=== PATIENT | female | born 1940 | race Hispanic/Latino ===

== ENCOUNTER 2019-02-18 10:37 | Day surgery (SDC) | payer MEDICARE ==
[2019-02-18] MEDS ORDERED: fentaNYL 100 MCG/2 ML INJ IV PRN (11:28)
--- NOTE | 2019-02-18 11:32 | Anesthesia Consultation ---
Anesthesia Consult and Med Hx Date of service: 02/18/19 - Airway Anesthetic Teeth Evaluation: Dentures (upper; lower implants) ROM Head & Neck: Adequate Mental/Hyoid Distance: Inadequate Mallampati Class: Class IV Intubation Access Assessment: Possibly Difficult (small mouth opening) - Pulmonary Exam CTA: Yes - Cardiac Exam Cardiac Exam: RRR - Pre-Operative Health Status ASA Pre-Surgery Classification: ASA3 Proposed Anesthetic Plan: General - Pulmonary Hx Smoking: No Hx Respiratory Symptoms: No Hx Sleep Apnea: No - Cardiovascular System Hx Hypertension: No (reports hx low BP) Hx Heart Attack/AMI: No Hx Cardia Arrhythmia: Yes (10yrs ago; resolved, no longer on antiarrythmics) Hx Pacemaker: No Hx Internal Defibrillator: No - Central Nervous System Hx Seizures: Yes (6 months ago; no AEDs) CVA: No Hx Back Pain: Yes (BACK AND NECK PAIN) Hx Psychiatric Problems: Yes (depression) - Gastrointestinal Hx Gastroesophageal Reflux Disease: No - Endocrine Hx Renal Disease: Yes (CKD; normal eGFR on outpatient labs 11/2018) Hx Liver Disease: No Hx Insulin Dependent Diabetes: No Hx Non-Insulin Dependent Diabetes: No Hx Thyroid Disease: No - Hematic Hx Anemia: Yes (normal H/H on recent outpatient labs) - Other Systems Hx Obesity: No - Additional Comments Anesthesia Medical History Comments: No hx anesthetic complications. Hx. RA and Crohn's disease s/p ileostomy. No current or recent steroid use.
--- NOTE | 2019-02-18 11:32 | Anesthesia Day of Surgery ---
Anesthesia Day of Surgery - Day of Surgery Patient Examined: Yes Patient H&P Reviewed: Yes Patient is NPO: Yes
[2019-02-18] MEDS ORDERED: LIDOCAINE MPF (2%) 20 MG/1 ML VIAL 5 ML ONE (11:44)
[2019-02-18] MEDS ORDERED: SUCCINYLCHOLINE CHLORIDE 200 MG/10 ML INJ MDV ONE (11:44)
[2019-02-18] MEDS ORDERED: fentaNYL 100 MCG/2 ML INJ ONE (11:44)
[2019-02-18] MEDS ORDERED: PROPOFOL 200 MG/20 ML VIAL IV ONE (11:44)
[2019-02-18] MEDS ORDERED: dexAMETHasone 20 MG/5 ML VIAL ONE (11:45)
[2019-02-18] MEDS ORDERED: ONDANSETRON 4 MG/2 ML INJ ONE (11:45)
[2019-02-18] MEDS ORDERED: LACTATED RINGERS 1,000 ML IV SCH (12:00)
[2019-02-18] MEDS ORDERED: ceFAZolin/STERILE WATER 2 GM/20 ML SYRINGE IV NR (13:00)
[2019-02-18] MEDS ORDERED: IOHEXOL 300 MG/ML 50ML IV ONE ×2 (13:20)
[2019-02-18] MEDS ORDERED: FUROSEMIDE 40 MG/4 ML INJ ONE (13:27)
--- NOTE | 2019-02-18 13:47 | Post Operative Note ---
Date of procedure: 02/18/19 Pre-op diagnosis: hematuria Post-op diagnosis: same (hematurai hydro) Findings: mod R hydro Procedure: cysto stent rpg bx Anesthesia: GETA Surgeon: HANNA LIU Estimated blood loss: minimal Pathology: list (bladder) Specimen disposition: to lab Condition: stable Disposition: PACU
--- NOTE | 2019-02-18 13:48 | Discharge Summary ---
Short Stay Discharge Plan Activity: other (no straining ) Weight Bearing Status: Full Weight Bearing Diet: low fat, low cholesterol, low salt Special Instructions: other (inc fluids ) Durable Medical Equipment Needed Upon Discharge: other (has j stent ) Follow up with: BAILEY LEWIS [Other] - 7 Days
--- NOTE | 2019-02-18 14:07 | Operative Report ---
PREOPERATIVE DIAGNOSES: History of Crohn's disease, previous colostomy, hematuria, infections. POSTOPERATIVE DIAGNOSES: History of Crohn's disease, previous colostomy, hematuria, infections. PROCEDURES: Cystoscopy, bladder lesions, bilateral retrogrades on kinking of the right ureter with double-J stent. FINDINGS: This is a woman with history of Crohn's, bladder thickening. She had some vaginal bleeding, questionable hematuria, now presents for cystoscopy. DESCRIPTION OF PROCEDURE: The patient was brought to the operating room and placed on the operating table. Following induction of anesthesia, placed in lithotomy position, prepped and draped in usual sterile fashion. Cystourethroscopy showed a very contracted small bladder. A couple erythematous areas right lateral wall. This was biopsied. These looked benign and inflammatory. I did not see a sign of fistula. Retrograde showed severe tortuosity, medial deviation of both ureters with severe dilatation of the right renal pelvis which did not drain. The UPJ was kinked and we straightened it out with an open-ended and placed a double-J stent 4.5 x 24. The patient tolerated the procedure well. On the right side, we were able to fill it. There were no caliectasis and it started draining. The ureter drainage to drain fine. The patient tolerated the procedure well. Looked the family, they were not in the waiting area, brought to recovery in stable condition. JOB# [id number] NEIL/RHETT
[2019-02-18 14:51] VITALS: BP 145/75
--- NOTE | 2019-02-18 15:29 | Fluoroscopy Report ---
5 fluoroscopic images submitted Indication: Intraoperative localization Impression: 5 images of the abdomen were submitted for documentation purposes with radiology involve katharine. Bilateral retrograde pyelography was performed and a bladder lesion was reportedly biopsied. D ouble-J ureteral stent placement was performed on the right. A total of 20 mL of Omnipaque 300 was ut ilized for this procedure. Please refer to the operative note for complete details. Fluoroscopic time: 2.3 minutes Signer Name: Zheng Moore MD Signed: 02/18/2019 3:25 PM Workstation Name: [id number]
== END 2019-02-18 15:35 | disposition home or self-care (01) ==
LOC: OR 10:37
PROVIDERS: ATTEND Urology
DX: R31.0 Gross hematuria (principal); N32.89 Other specified disorders of bladder; I12.9 Hypertensive chronic kidney disease with stage 1 through stage 4 chronic kidney disease, or unspecified chronic kidney disease; N18.9 Chronic kidney disease, unspecified; H40.9 Unspecified glaucoma; I42.9 Cardiomyopathy, unspecified; J44.9 Chronic obstructive pulmonary disease, unspecified; Z90.49 Acquired absence of other specified parts of digestive tract; K21.9 Gastro-esophageal reflux disease without esophagitis; M06.9 Rheumatoid arthritis, unspecified; F32.9 Major depressive disorder, single episode, unspecified; Z93.3 Colostomy status; Z87.19 Personal history of other diseases of the digestive system; Z79.899 Other long term (current) drug therapy; Z87.440 Personal history of urinary (tract) infections; Z98.890 Other specified postprocedural states; Z86.2 Personal history of diseases of the blood and blood-forming organs and certain disorders involving the immune mechanism
CPT/HCPCS: 52204; 52332; 74420; 88305; C1758; C2617; J0330; J1100; J1940; J2405; J2704; J3010; J7120; Q9967